=== PATIENT | male | born 1985 | race Caucasian/White ===

== ENCOUNTER 2017-12-26 08:59 | Day surgery (SDC) | payer MEDICARE, MEDICAID ==
[2017-12-23 12:39] LABS: Basophils # (auto) 0 uL; Basophils % (auto) 0.4 % (0.0-2.0); Eosinophils # (auto) 0.2 uL; Eosinophils % (auto) 1.8 % (0.0-7.0); Hematocrit 46.7 % (41.0-53.0); Hemoglobin 15.8 g/dL (13.5-17.5); Lymphocytes # (auto) 2.5 uL; Mean Corpuscular Hemoglobin 31.6 pg (28.0-32.0); Mean Corpuscular Hgb Conc. 33.9 g/dL (32.0-36.0); Mean Corpuscular Volume 93.2 fL (80.0-100.0); Monocytes # (auto) 0.8 uL; Monocytes % (auto) 8.1 % (0.0-12.0); Neutrophils # (auto) 5.9 uL; Neutrophils % (auto) 62.7 % (37.0-80.0); Nucleated Red Blood Cells % 0.2 %; Platelet Count (auto) 150 10^3/uL (140-450); Red Blood Cells 5.02 10^6/uL (4.5-5.90); Red Cell Distribution Width 13.7 % (11.8-14.3); White Blood Cell 9.4 10^3/uL (4.4-10.8)
[2017-12-23 12:57] LABS: INR 1.06 (0.9-1.15); Partial Thromboplastin Time 30.1 sec (23.78-33.04); Prothrombin Time 11.3 sec (9.27-12.13)
[~2017-12-26] VITALS: Ht 182.9 cm; Wt 63.0 kg
[~2017-12-26 08:59] MED LIST: CLON0.1T PO; CLON05T GT; DIVA500T59 PO; DOXE25CA2 PO; OLAN10TA29 PO; OMEP20TA PO; ONDA4TAB5 PO; PALI156I IM; TRAZ100T2 PO
[2017-12-26] MEDS ORDERED: LIDOCAINE VISCOUS 2% 15ML UD ONE (09:50)
[2017-12-26] MEDS ORDERED: SODIUM CHLORIDE LOCK 10 ML ONE (09:50)
[2017-12-26] MEDS ORDERED: diphenhdrAMINE HCL 50 MG/1 ML VL ONE (09:51)
[2017-12-26] MEDS: MIDAZOLAM HCL 5 MG/ML-1ML VIAL ONE ×3 (11:37→11:43)
[2017-12-26] MEDS: fentaNYL CITRATE 100 MCG/2 ML VL ONE ×3 (11:37→11:43)
[2017-12-26 12:30] VITALS: BP 107/72
== END 2017-12-26 12:30 | disposition home or self-care (01) ==
LOC: GI 08:59
PROVIDERS: ATTEND Internal Medicine Gastroenterology
DX: K29.50 Unspecified chronic gastritis without bleeding (principal); E66.9 Obesity, unspecified; Z68.21 Body mass index [BMI] 21.0-21.9, adult; Z79.899 Other long term (current) drug therapy
CPT/HCPCS: 36415; 43239; 85025; 85610; 85730; A6257; J1200; J2250; J3010; J7030; G0500